=== PATIENT | male | born 1960 | race Caucasian/White ===

== ENCOUNTER 2016-07-08 16:21 | Emergency (ER) | payer OTHER ==
[2016-07-08] MEDS ORDERED: Albuterol Sulfate 2.5 mg/0.5 ml Neb ONE ×2 (16:55→17:53)
[2016-07-08] MEDS ORDERED: Ipratropium Bromide 2.5 ml Neb ONE (16:56)
[2016-07-08] MEDS ORDERED: methylPREDNISolone Sod Succ/PF 125 MG/2 ML VIAL ONE (16:56)
[2016-07-08 17:12] LABS: #Basophils 0.1 thou/uL (0.0-0.2); #Eosinphils 0.1 thou/uL (0.0-0.7); #Lymphocytes 2.7 thou/uL (1.20-3.40); #Monocytes 0.7 thou/uL (0.11-0.59); #Neutrophils 6.8 thou/uL (1.40-6.50); %Basophils 0.8 % (0.0-1.0); %Eosinophils 0.7 % (0.0-10.0); %Lymphocytes 26.4 % (21.0-51.0); %Monocytes 6.5 % (0.0-10.0); Hematocrit 41.4 % (42.0-52.0); Red Blood Cell (RBC) Count 4.51 mill/uL (4.70-6.10); White Blood Cell (WBC) Count 10.4 thou/uL (4.8-10.8)
--- NOTE | 2016-07-08 17:18 | RAD ---
PA AND LATERAL VIEWS OF CHEST: Date: 07/08/16 HISTORY: Dyspnea. FINDINGS: Comparison made with exam of 12/26/14. There are changes of median sternotomy. The heart size is normal. The lungs are well expanded withou t focal areas of consolidation, pneumothorax, or pleural effusions. No acute osseous abnormalities a re seen. IMPRESSION: No radiographic evidence of acute cardiopulmonary process. POS: [facility]
[2016-07-08 17:30] LABS: ALT (SGPT) 43 U/L (0-55); AST (SGOT) 22 U/L (5-34); Alkaline Phosphatase 74 U/L (40-150); Anion Gap 17 mmol/L (10-20); BUN (Urea Nitrogen) 10 mg/dL (8.4-25.7); Bilirubin, Total 0.3 mg/dL (0.2-1.2); Calc. Creatinine Clearance 0 mL/min (70-130); Carbon Dioxide 23 mmol/L (22-29); Chloride 102 mmol/L (98-107); Estimated GFR-MDRD Greater than 90; Globulin 3.3 g/dL (2.4-3.5); Protein, Total 7.3 g/dL (6.0-8.3)
[2016-07-08] MEDS ORDERED: Sodium Chloride For Inhalation 0.9% 3 ML NEB ONE (17:53)
== END 2016-07-08 18:20 | disposition home or self-care (01) ==
LOC: NAV ERS 16:21
DX: J45.909 Unspecified asthma, uncomplicated (principal); I48.91 Unspecified atrial fibrillation; E11.9 Type 2 diabetes mellitus without complications; E78.5 Hyperlipidemia, unspecified; I11.0 Hypertensive heart disease with heart failure; I50.9 Heart failure, unspecified; F41.9 Anxiety disorder, unspecified; F32.9 Major depressive disorder, single episode, unspecified
CPT/HCPCS: 71020; 80053; 82553; 84484; 85025; 93005; 94640; 96374; J2930; J7611; J7644

== ENCOUNTER 2016-11-03 06:59 | Outpatient (CLI) | payer OTHER ==
[2016-11-03 08:21] LABS: ALT (SGPT) 38 U/L (8-55); AST (SGOT) 20 U/L (5-34); Albumin 4.8 g/dL (3.5-5.0); Alkaline Phosphatase 68 U/L (40-150); Anion Gap 19 mmol/L (10-20); BUN (Urea Nitrogen) 16 mg/dL (8.4-25.7); Bilirubin, Direct 0.1 mg/dL (0.1-0.3); Bilirubin, Total 0.4 mg/dL (0.2-1.2); Calc. Creatinine Clearance 0 mL/min (70-130); Calcium 9.9 mg/dL (7.8-10.44); Carbon Dioxide 24 mmol/L (22-29); Chloride 96 mmol/L (98-107); Cholesterol 180 mg/dl (< 200 Desired); Estimated GFR-MDRD Greater than 90; Glucose 168 mg/dL (70-105); HDL Cholesterol 30 mg/dL (>60 Neg Risk); LDL Cholesterol, Calculated 114 mg/dL; Potassium 3.2 mmol/L (3.5-5.1); Sodium 136 mmol/L (136-145); Triglycerides 178 mg/dL (Less than 150)
[2016-11-03 08:35] LABS: #Basophils 0.1 thou/uL (0.0-0.2); #Eosinphils 0.1 thou/uL (0.0-0.7); #Lymphocytes 2.7 thou/uL (1.20-3.40); #Neutrophils 6.1 thou/uL (1.40-6.50); %Basophils 0.6 % (0.0-1.0); %Eosinophils 0.6 % (0.0-10.0); %Lymphocytes 27.6 % (21.0-51.0); %Monocytes 10.3 % (0.0-10.0); %Neutrophils 60.9 % (42.0-75.0); Hemoglobin 15.4 g/dL (14.0-18.0); Mean Corpuscular HGB CONC 32.9 g/dL (32.0-36.0); Mean Corpuscular Hemoglobin 29.5 pg (27.0-31.0); Mean Corpuscular Volume 89.5 fl (80.0-94.0); Mean Platelet Volume 6.6 fL (7.4-10.4); Platelet Count 290 thou/uL (130-400); Red Blood Cell (RBC) Count 5.23 mill/uL (4.70-6.10); White Blood Cell (WBC) Count 9.9 thou/uL (4.8-10.8)
[2016-11-03 08:45] LABS: Digoxin 0.62 ng/mL (0.8-2.0); Hemoglobin A1c 6.2 % (4.0-6.0)
== END 2016-11-03 07:00 | disposition home or self-care (01) ==
LOC: NAV LAB 06:59
PROVIDERS: ATTEND Family Medicine
DX: E78.00 Pure hypercholesterolemia, unspecified (principal); I10 Essential (primary) hypertension; E11.9 Type 2 diabetes mellitus without complications; I48.91 Unspecified atrial fibrillation; Z79.899 Other long term (current) drug therapy
CPT/HCPCS: 36415; 80048; 80061; 80076; 80162; 83036; 83880; 84443; 85025

== ENCOUNTER 2017-01-31 07:27 | Outpatient (CLI) | payer OTHER ==
[2017-01-31 08:21] LABS: Anion Gap 19 mmol/L (10-20); BUN (Urea Nitrogen) 14 mg/dL (8.4-25.7); Calc. Creatinine Clearance 0 mL/min (70-130); Calcium 9.2 mg/dL (7.8-10.44); Carbon Dioxide 20 mmol/L (22-29); Chloride 105 mmol/L (98-107); Estimated GFR-MDRD Greater than 90; Glucose 139 mg/dL (70-105); Magnesium 2.3 mg/dL (1.6-2.6); Potassium 4.5 mmol/L (3.5-5.1); Sodium 139 mmol/L (136-145)
== END 2017-01-31 07:28 | disposition home or self-care (01) ==
LOC: NAV LAB 07:27
PROVIDERS: ATTEND Internal Medicine Cardiovascular Disease
DX: I10 Essential (primary) hypertension (principal)
CPT/HCPCS: 36415; 80048; 83735

== ENCOUNTER 2017-02-05 14:48 | Emergency (ER) | payer OTHER ==
[2017-02-05] MEDS ORDERED: Ondansetron ODT 4 MG TAB ONE (15:19)
== END 2017-02-05 16:13 | disposition home or self-care (01) ==
LOC: NAV ERS 14:48
DX: R11.2 Nausea with vomiting, unspecified (principal); I49.9 Cardiac arrhythmia, unspecified; I48.91 Unspecified atrial fibrillation; E11.9 Type 2 diabetes mellitus without complications; E78.5 Hyperlipidemia, unspecified; E66.9 Obesity, unspecified; I25.10 Atherosclerotic heart disease of native coronary artery without angina pectoris; I11.0 Hypertensive heart disease with heart failure; I50.9 Heart failure, unspecified; G43.909 Migraine, unspecified, not intractable, without status migrainosus; F41.9 Anxiety disorder, unspecified; F32.9 Major depressive disorder, single episode, unspecified; Z79.4 Long term (current) use of insulin; Z79.82 Long term (current) use of aspirin; Z79.01 Long term (current) use of anticoagulants; Z79.899 Other long term (current) drug therapy
CPT/HCPCS: 99283; Q0162

== ENCOUNTER 2017-06-06 11:45 | Emergency (ER) | payer OTHER ==
[2017-06-06] MEDS ORDERED: Sodium Chloride 0.9% 1,000 ML ONE (12:39)
[2017-06-06] MEDS ORDERED: Ondansetron HCl/PF 4 MG/2 ML Vial ONE (12:40)
[2017-06-06 13:21] LABS: #Basophils 0.1 thou/uL (0.0-0.2); Hemoglobin 14.6 g/dL (14.0-18.0); Mean Corpuscular Hemoglobin 28.8 pg (27.0-31.0)
[2017-06-06 13:33] LABS: ALT (SGPT) 38 U/L (8-55); AST (SGOT) 27 U/L (5-34); Albumin 4.4 g/dL (3.5-5.0); Alkaline Phosphatase 74 U/L (40-150); Anion Gap 19 mmol/L (10-20); BUN (Urea Nitrogen) 12 mg/dL (8.4-25.7); Bilirubin, Total 0.2 mg/dL (0.2-1.2); Calc. Creatinine Clearance 0 mL/min (70-130); Calcium 8.5 mg/dL (7.8-10.44); Carbon Dioxide 25 mmol/L (22-29); Chloride 99 mmol/L (98-107); Estimated GFR-MDRD Greater than 90; Glucose 159 mg/dL (70-105); Lipase 21 U/L (8-78); Potassium 3.7 mmol/L (3.5-5.1); Protein, Total 7.4 g/dL (6.0-8.3); Sodium 139 mmol/L (136-145)
[2017-06-06 13:47] LABS: #Lymphocytes 1.9 thou/uL (1.20-3.40); #Monocytes 0.7 thou/uL (0.11-0.59); #Neutrophils 5.5 thou/uL (1.40-6.50); %Basophils 0.9 % (0.0-1.0); %Eosinophils 0.5 % (0.0-10.0); %Lymphocytes 23.6 % (21.0-51.0); %Monocytes 8.4 % (0.0-10.0); %Neutrophils 66.6 % (42.0-75.0); Mean Corpuscular HGB CONC 32.3 g/dL (32.0-36.0); Mean Corpuscular Volume 89.3 fl (80.0-94.0); Mean Platelet Volume 7.2 fL (7.4-10.4); Platelet Count 276 thou/uL (130-400); RBC Distribution Width 11.7 % (11.5-14.5); Red Blood Cell (RBC) Count 5.06 mill/uL (4.70-6.10); White Blood Cell (WBC) Count 8.2 thou/uL (4.8-10.8)
== END 2017-06-06 14:52 | disposition home or self-care (01) ==
LOC: NAV ERS 11:45
DX: E86.0 Dehydration (principal); R11.2 Nausea with vomiting, unspecified; R19.7 Diarrhea, unspecified; E11.9 Type 2 diabetes mellitus without complications; E66.9 Obesity, unspecified; E78.5 Hyperlipidemia, unspecified; F41.9 Anxiety disorder, unspecified; F32.9 Major depressive disorder, single episode, unspecified; G43.909 Migraine, unspecified, not intractable, without status migrainosus; G40.209 Localization-related (focal) (partial) symptomatic epilepsy and epileptic syndromes with complex partial seizures, not intractable, without status epilepticus; I11.0 Hypertensive heart disease with heart failure; I50.9 Heart failure, unspecified; I48.91 Unspecified atrial fibrillation; I25.10 Atherosclerotic heart disease of native coronary artery without angina pectoris; J42 Unspecified chronic bronchitis; Z79.4 Long term (current) use of insulin; Z79.82 Long term (current) use of aspirin; Z79.899 Other long term (current) drug therapy
CPT/HCPCS: 80053; 83690; 85025; 93005; 96361; 96374; J2405; J7050

== ENCOUNTER 2017-12-17 14:25 | Emergency (ER) | payer OTHER ==
[2017-12-17] MEDS ORDERED: AMOXicillin 250 MG CAP ONE (15:02)
== END 2017-12-17 15:08 | disposition home or self-care (01) ==
LOC: NAV ERS 14:25
DX: J06.9 Acute upper respiratory infection, unspecified (principal); E78.5 Hyperlipidemia, unspecified; E66.9 Obesity, unspecified; I11.0 Hypertensive heart disease with heart failure; I50.9 Heart failure, unspecified; I25.10 Atherosclerotic heart disease of native coronary artery without angina pectoris; J40 Bronchitis, not specified as acute or chronic; F41.9 Anxiety disorder, unspecified; F32.9 Major depressive disorder, single episode, unspecified; Z79.899 Other long term (current) drug therapy; Z79.84 Long term (current) use of oral hypoglycemic drugs; Z79.01 Long term (current) use of anticoagulants
CPT/HCPCS: 99283

== ENCOUNTER 2018-07-24 16:20 | Emergency (ER) | payer OTHER ==
[2018-07-24 16:52] LABS: #Basophils 0.1 thou/uL (0.0-0.2); #Eosinphils 0.1 thou/uL (0.0-0.7); #Lymphocytes 2.6 thou/uL (1.20-3.40); #Monocytes 0.8 thou/uL (0.11-0.59); #Neutrophils 4.9 thou/uL (1.40-6.50); Mean Corpuscular HGB CONC 32.2 g/dL (32.0-36.0); Mean Corpuscular Hemoglobin 29.3 pg (27.0-31.0); Mean Platelet Volume 6.4 fL (7.4-10.4); Platelet Count 266 thou/uL (130-400); RBC Distribution Width 12.3 % (11.5-14.5); Red Blood Cell (RBC) Count 4.78 mill/uL (4.70-6.10); White Blood Cell (WBC) Count 8.4 thou/uL (4.8-10.8)
[2018-07-24 17:08] LABS: ALT (SGPT) 46 U/L (8-55); AST (SGOT) 28 U/L (5-34); Albumin 4.6 g/dL (3.5-5.0); Alkaline Phosphatase 72 U/L (40-150); Anion Gap 17 mmol/L (10-20); BUN (Urea Nitrogen) 28 mg/dL (8.4-25.7); Bilirubin, Total 0.5 mg/dL (0.2-1.2); Calc. Creatinine Clearance 0 mL/min (70-130); Calcium 9.7 mg/dL (7.8-10.44); Carbon Dioxide 22 mmol/L (22-29); Chloride 101 mmol/L (98-107); Estimated GFR-MDRD 88; Globulin 2.8 g/dL (2.4-3.5); Glucose 91 mg/dL (70-105); Magnesium 2.2 mg/dL (1.6-2.6); Potassium 3.9 mmol/L (3.5-5.1); Protein, Total 7.4 g/dL (6.0-8.3); Sodium 136 mmol/L (136-145)
--- NOTE | 2018-07-24 17:37 | RAD ---
CHEST ONE VIEW: History: Chest palpitations. Comparison: 03-01-18 FINDINGS: Heart size is enlarged. Lungs are hypoinflated. Mild atelectasis. No pneumothorax. No large effusion. IMPRESSION: Lung hypoinflation and cardiomegaly. POS: [facility]
== END 2018-07-24 18:27 | disposition home or self-care (01) ==
LOC: NAV ERS 16:20
DX: R42 Dizziness and giddiness (principal); I48.91 Unspecified atrial fibrillation; E78.5 Hyperlipidemia, unspecified; I25.10 Atherosclerotic heart disease of native coronary artery without angina pectoris; I11.0 Hypertensive heart disease with heart failure; I50.9 Heart failure, unspecified; G43.909 Migraine, unspecified, not intractable, without status migrainosus; F41.9 Anxiety disorder, unspecified; F32.9 Major depressive disorder, single episode, unspecified; Z79.01 Long term (current) use of anticoagulants; Z79.899 Other long term (current) drug therapy; Z79.82 Long term (current) use of aspirin; Z79.84 Long term (current) use of oral hypoglycemic drugs
CPT/HCPCS: 71045; 80053; 83735; 84484; 85025; 93005

== ENCOUNTER 2018-08-04 19:08 | Emergency (ER) | payer OTHER ==
[2018-08-04] MEDS ORDERED: Aspirin Chewable 81 MG TAB ONE (19:16)
[2018-08-04 19:48] LABS: #Basophils 0.1 thou/uL (0.0-0.2); #Eosinphils 0.1 thou/uL (0.0-0.7); #Lymphocytes 2.7 thou/uL (1.20-3.40); #Monocytes 0.8 thou/uL (0.11-0.59); #Neutrophils 4.3 thou/uL (1.40-6.50); %Basophils 1.3 % (0.0-1.0); %Eosinophils 1.3 % (0.0-10.0); %Lymphocytes 33.7 % (21.0-51.0); %Monocytes 9.8 % (0.0-10.0); Hemoglobin 13.3 g/dL (14.0-18.0); Mean Corpuscular HGB CONC 32.8 g/dL (32.0-36.0); Mean Corpuscular Hemoglobin 29.5 pg (27.0-31.0); Mean Corpuscular Volume 89.9 fL (78.0-98.0); Mean Platelet Volume 5.9 fL (7.4-10.4); Platelet Count 251 thou/uL (130-400); RBC Distribution Width 12.3 % (11.5-14.5); Red Blood Cell (RBC) Count 4.52 mill/uL (4.70-6.10); White Blood Cell (WBC) Count 7.9 thou/uL (4.8-10.8)
--- NOTE | 2018-08-04 20:02 | RAD ---
PORTABLE CHEST: 08/04/18 HISTORY: Chest pain. COMPARISON: 07/24/18 study. Heart size is within normal limits considering lordotic technique. There are postop sternotomy change s. The lungs are clear of infiltrates. IMPRESSION: No active intrathoracic disease. POS: [facility]
[2018-08-04 20:03] LABS: ALT (SGPT) 29 U/L (8-55); AST (SGOT) 22 U/L (5-34); Albumin 4.5 g/dL (3.5-5.0); Alkaline Phosphatase 79 U/L (40-150); Anion Gap 14 mmol/L (10-20); BUN (Urea Nitrogen) 18 mg/dL (8.4-25.7); Bilirubin, Total 0.2 mg/dL (0.2-1.2); CK (CPK) 189 U/L (30-200); Calc. Creatinine Clearance 0 mL/min (70-130); Calcium 10.3 mg/dL (7.8-10.44); Carbon Dioxide 26 mmol/L (22-29); Chloride 102 mmol/L (98-107); Estimated GFR-MDRD Greater than 90; Globulin 2.7 g/dL (2.4-3.5); Glucose 85 mg/dL (70-105); Lipase 21 U/L (8-78); Potassium 3.8 mmol/L (3.5-5.1); Protein, Total 7.2 g/dL (6.0-8.3); Sodium 138 mmol/L (136-145)
== END 2018-08-04 20:45 | disposition home or self-care (01) ==
LOC: NAV ERS 19:08
DX: R07.89 Other chest pain (principal); I20.9 Angina pectoris, unspecified; I48.91 Unspecified atrial fibrillation; E78.5 Hyperlipidemia, unspecified; I50.9 Heart failure, unspecified; G43.909 Migraine, unspecified, not intractable, without status migrainosus; J42 Unspecified chronic bronchitis; F41.9 Anxiety disorder, unspecified; F32.9 Major depressive disorder, single episode, unspecified; Z79.899 Other long term (current) drug therapy; Z79.4 Long term (current) use of insulin
CPT/HCPCS: 71045; 80053; 82550; 83690; 84484; 85025; 93005

== ENCOUNTER 2018-11-13 10:45 | Emergency (ER) | payer OTHER ==
[2018-11-13 11:32] LABS: #Basophils 0.1 thou/uL (0.0-0.2); #Eosinphils 0.1 thou/uL (0.0-0.7); #Lymphocytes 2.1 thou/uL (1.20-3.40); #Monocytes 0.6 thou/uL (0.11-0.59); %Eosinophils 1.1 % (0.0-10.0); %Lymphocytes 30.5 % (21.0-51.0); %Monocytes 8.8 % (0.0-10.0); %Neutrophils 58.5 % (42.0-75.0); Hemoglobin 14.3 g/dL (14.0-18.0); Mean Corpuscular HGB CONC 32.5 g/dL (32.0-36.0); Mean Corpuscular Hemoglobin 29.5 pg (27.0-31.0); Mean Corpuscular Volume 90.8 fL (78.0-98.0); Platelet Count 257 thou/uL (130-400); RBC Distribution Width 12.1 % (11.5-14.5); Red Blood Cell (RBC) Count 4.84 mill/uL (4.70-6.10); White Blood Cell (WBC) Count 6.8 thou/uL (4.8-10.8)
[2018-11-13 11:47] LABS: ALT (SGPT) 33 U/L (8-55); AST (SGOT) 22 U/L (5-34); Albumin 4.7 g/dL (3.5-5.0); Alkaline Phosphatase 58 U/L (40-150); Anion Gap 20 mmol/L (10-20); BUN (Urea Nitrogen) 12 mg/dL (8.4-25.7); Bilirubin, Total 0.3 mg/dL (0.2-1.2); CK (CPK) 137 U/L (30-200); Calc. Creatinine Clearance 0 mL/min (70-130); Calcium 9.7 mg/dL (7.8-10.44); Carbon Dioxide 22 mmol/L (22-29); Chloride 100 mmol/L (98-107); Estimated GFR-MDRD Greater than 90; Globulin 2.8 g/dL (2.4-3.5); Glucose 130 mg/dL (70-105); Protein, Total 7.5 g/dL (6.0-8.3); Sodium 138 mmol/L (136-145)
--- NOTE | 2018-11-13 12:10 | RAD ---
PORTABLE CHEST: Date: 11/13/18 PROVIDED CLINICAL HISTORY: Cough. FINDINGS: Comparison with 08/08/18. Examination is performed in apical lordotic positioning. Given this limitation, no definite change in the appearance of the cardiac or mediastinal silhouette with respect to the prior exam. Median chadwick otomy changes are again seen. No focal consolidation, pleural fluid, or pneumothorax apparent. IMPRESSION: No evidence for an acute cardiopulmonary process. POS: [facility]
== END 2018-11-13 12:50 | disposition home or self-care (01) ==
LOC: NAV ERS 10:45
DX: R42 Dizziness and giddiness (principal); I49.9 Cardiac arrhythmia, unspecified; I11.0 Hypertensive heart disease with heart failure; I50.9 Heart failure, unspecified; I48.91 Unspecified atrial fibrillation; E11.9 Type 2 diabetes mellitus without complications; E78.5 Hyperlipidemia, unspecified; I25.10 Atherosclerotic heart disease of native coronary artery without angina pectoris; F41.9 Anxiety disorder, unspecified; F32.9 Major depressive disorder, single episode, unspecified; Z79.899 Other long term (current) drug therapy; Z79.01 Long term (current) use of anticoagulants
CPT/HCPCS: 71045; 80053; 82550; 83880; 84484; 85025; 93005

== ENCOUNTER 2018-11-15 12:50 | Observation (INO) | payer OTHER ==
[2018-11-15 13:37] LABS: #Basophils 0.1 thou/uL (0.0-0.2); #Eosinphils 0.1 thou/uL (0.0-0.7); #Lymphocytes 3.2 thou/uL (1.20-3.40); #Monocytes 0.6 thou/uL (0.11-0.59); #Neutrophils 5.7 thou/uL (1.40-6.50); %Basophils 0.8 % (0.0-1.0); %Eosinophils 0.7 % (0.0-10.0); %Lymphocytes 32.9 % (21.0-51.0); %Monocytes 5.8 % (0.0-10.0); %Neutrophils 59.8 % (42.0-75.0); Hemoglobin 14.7 g/dL (14.0-18.0); Mean Corpuscular HGB CONC 33.6 g/dL (32.0-36.0); Mean Corpuscular Hemoglobin 29.8 pg (27.0-31.0); Mean Corpuscular Volume 88.8 fL (78.0-98.0); Mean Platelet Volume 5.8 fL (7.4-10.4); Platelet Count 278 thou/uL (130-400); RBC Distribution Width 11.9 % (11.5-14.5); Red Blood Cell (RBC) Count 4.92 mill/uL (4.70-6.10); White Blood Cell (WBC) Count 9.6 thou/uL (4.8-10.8)
[2018-11-15 13:55] LABS: ALT (SGPT) 41 U/L (8-55); AST (SGOT) 25 U/L (5-34); Albumin 4.8 g/dL (3.5-5.0); Alkaline Phosphatase 71 U/L (40-150); Anion Gap 21 mmol/L (10-20); BUN (Urea Nitrogen) 17 mg/dL (8.4-25.7); Bilirubin, Total 0.3 mg/dL (0.2-1.2); Calc. Creatinine Clearance 0 mL/min (70-130); Calcium 10.3 mg/dL (7.8-10.44); Carbon Dioxide 20 mmol/L (22-29); Chloride 98 mmol/L (98-107); Estimated GFR-MDRD 79; Globulin 3.1 g/dL (2.4-3.5); Glucose 98 mg/dL (70-105); Potassium 4.2 mmol/L (3.5-5.1); Protein, Total 7.9 g/dL (6.0-8.3); Sodium 135 mmol/L (136-145)
[2018-11-15] MEDS ORDERED: Sodium Chloride 0.9% 1,000 ML ONE (14:12)
--- NOTE | 2018-11-15 14:32 | RAD ---
SINGLE VIEW OF THE CHEST: 11/15/18 COMPARISON: 11/13/18 HISTORY: Hypertension and dizziness. FINDINGS: Single view of the chest shows a normal sized cardiomediastinal silhouette. The patient is status pos t sternotomy. There is no evidence of consolidation, mass, or pleural effusion. IMPRESSION: No evidence of acute cardiopulmonary disease. POS: [facility]
--- NOTE | 2018-11-15 14:34 | CT ---
CT OF THE BRAIN WITHOUT CONTRAST: 11/15/18 COMPARISON: 09/23/15 HISTORY: Hypertension and dizziness. TECHNIQUE: Multiple contiguous axial images obtained in a CT of the brain without contrast. FINDINGS: There are scattered hypodensities in the subcortical and periventricular white matter, likely seconda ry to small vessel ischemic disease. No large confluent infarction is seen. There is no evidence of h ydrocephalus, intracranial hemorrhage, or extra-axial fluid collection. The calvarium and overlying soft tissues are unremarkable. Fluid is seen in the right sphenoid sinus . The other paranasal sinuses and mastoid air cells are well aerated. IMPRESSION: No evidence of acute intracranial abnormality. POS: [facility]
[2018-11-15 16:20] VITALS: BMI 40.1
[2018-11-15] MEDS ORDERED: Ventolin HFA Inhaler 60 PUFF INHALER INH PRN (18:55)
[2018-11-15] MEDS ORDERED: Cyclobenzaprine 10 MG TAB PO PRN (18:55)
[2018-11-15] MEDS ORDERED: Nitroglycerin 0.4 MG TAB (25 Tab Bottle) SL PRN (18:55)
[2018-11-15] MEDS ORDERED: Non-Formulary Item 1 EACH (Budesonide-Formoterol [Symbicort 160-4.5] 2 PUFF) INH PRN (18:55)
[2018-11-15] MEDS ORDERED: Acetaminophen 325 MG TAB PO PRN (19:00)
[2018-11-15] MEDS ORDERED: Calcium Carbonate 500 MG ChewTAB PO PRN (19:00)
[2018-11-15] MEDS ORDERED: EVOLOCUMAB 140 MG SQ SCH (19:00)
[2018-11-15] MEDS ORDERED: Loperamide HCl 2 MG CAP PO PRN ×2 (19:00)
[2018-11-15] MEDS ORDERED: Senokot S 8.6-50 MG TAB PO PRN (19:00)
[2018-11-15] MEDS ORDERED: Mometasone/Formoterol 60 PUFF AER INH PRN (19:51)
[2018-11-15] MEDS: Potassium Chloride 10 MEQ TAB PO SCH (20:35)
[2018-11-15] MEDS: Amoxicillin/Potassium Clav 875 MG TAB PO SCH (20:35)
[2018-11-15 21:00] LABS: Bilirubin Negative (Negative); Blood, Urine Negative (Negative); Clarity Clear (Clear); Glucose, Urine (Dipstick) Negative (Negative); Leukocyte Negative (Negative); Nitrite Negative (Negative); Protein, Urine (Dipstick) Negative (Neg-Trace); Urobilinogen 0.2 mg/dL (Less than 2)
[2018-11-15] MEDS ORDERED: Atorvastatin Calcium 40 MG TAB PO SCH (21:00)
[2018-11-15 21:12] LABS: Squamous Epithelial 0-3 HPF (0-3)
--- NOTE | 2018-11-16 02:39 | HP ---
HISTORY OF PRESENT ILLNESS: Mr. Augustin is a very pleasant 58-year-old white male, who presented to the [facility] complaining of sweating, shortness of breath, feeling dizzy, feeling like his blood pressure was high. It looked like he was having a heart attack, so the friend just sent him to [facility] Emergency Room. He was seen there by Dr. Nice. He was evaluated and found to have a high lactic acid. Rest of his exam was basically somewhat normal and the patient after he stayed there for approximately an hour or 2, blood pressure did come down, but he did tilt a little bit. Dr. Nice was concerned because of his significant cardiac history that he may be having a cardiac event, so he requested placing him on observation and doing serial troponins, cardiac enzymes, and following his lactic acid. PAST MEDICAL HISTORY: Significant for 1. Hypertension. 2. Coronary artery disease. 3. Irregular heartbeat. 4. Hyperlipidemia. 5. Anxiety, depressive disorder. 6. GERD. 7. Diabetes type 2. 8. Atrial fib in the past. 9. Anxiety. 10. Allergic rhinitis. 11. Seizure disorder. PAST SURGICAL HISTORY: Reveals the patient has a cardiac bypass, cardiac stents, cardiac ablation. FAMILY HISTORY: Reveals the patient's father of heart disease and high blood pressure. The patient's mother of heart disease and high blood pressure. SOCIAL HISTORY: Reveals patient does not smoke, does not drink, tobacco or use drugs. He is . He has several children, is unable to exercise. ALLERGIES: REVEALS HE IS ALLERGIC TO YUNIOR INHIBITORS, WHICH GIVE HIM A COUGH. PRESENT MEDICATIONS: Reveals he is on the followin. Xarelto 20 mg once a day. 2. Plavix 75 mg daily. 3. Bystolic 5 mg once a day. 4. Losartan 25 mg a day. 5. Diltiazem p.r.n. heart rate greater than 120. 6. Torsemide 20 mg daily. 7. Spironolactone 25 mg half a pill once daily. 8. Potassium chloride 10 mEq b.i.d. 9. Atorvastatin 80 mg daily. 10. Zetia 10 mg daily. 11. CoQ10 daily. 12. Digoxin 1.25 daily. 13. Isosorbide dinitrate 30 mg two pills daily. 14. Lantus 10 units subcu once daily. 15. Metformin 500 mg two pills b.i.d. with breakfast and supper. 16. Divalproex 500 mg 3 times a day. 17. Omeprazole 20 mg daily. 18. Mag-Ox 400 mg daily. 19. Nitroglycerin p.r.n. 20. Sertraline 100 mg two pills daily. 21. Bupropion XL 150 mg one pill daily. 22. Gabapentin 300 mg once at bedtime. 23. Xopenex p.r.n. 24. Repatha injections twice a month. REVIEW OF SYSTEMS: CONSTITUTIONAL: Reveals the patient has not had any weight loss or weight gain. His appetite has been good. He has not had fever, chills, or night sweats. He sweats atypically and today he has had a large sweat. EYES: The patient denies vision changes. EARS: Denies changes in his hearing. HEART: The patient denies chest pain, but does have palpitations, irregular heartbeat, some shortness of breath. RESPIRATORY: The patient does admit to some shortness of breath and dyspnea on exertion, which is constant for him. No significant cough, although he did have a cough but it is much improved since he had been on the Augmentin. GI: The patient denies constipation, diarrhea, nausea, vomiting. NEUROLOGIC: The patient denies headaches, lightheadedness, paresthesias, numbness, weakness, or vision changes. MUSCULOSKELETAL: The patient denies myalgias, increased weakness, focal weakness. PSYCHIATRY: The patient denies anxiety, depressive and no mood swings. PHYSICAL EXAMINATION: GENERAL: This is a well-developed, well-nourished, alert white male, who states he is beginning to feel much better. HEENT: Normocephalic, nontraumatic cranium. Pupils are equal, round, and reactive. Extraocular movements are intact. Nose and throat are slightly dry, but clear. NECK: Supple without masses, nodes, or bruits. No jugular venous distention noted. HEART: Reveals a regular rate and rhythm without murmurs, gallops or rubs. ABDOMEN: Soft, nontender without organomegaly. Normal bowel sounds are noted. No rebound or guarding is noted. GENITOURINARY: Deferred. EXTREMITIES: Reveal no clubbing, cyanosis, and no edema is noted today. The patient does not describe any recent seizures. PSYCHOLOGIC: The patient is alert and oriented x3. ASSESSMENT: 1. Unknown etiology of dizziness and hypertension, although the patient was slightly dehydrated and did tilt in the ER. 2. Lactic acidosis increased. 3. A very strong history of cardiovascular disease in the past with CABG stents and ablations in the past. 4. Seizure disorder. 5. History of atrial fibrillation. 6. Diabetes. 7. Hypertension. 8. Hypercholesterolemia. 9. Gastroesophageal reflux disease. PLAN: 1. The patient is admitted to observation. 2. The patient will have serial cardiac enzymes, which has already been ordered by Dr. Nice. 3. Repeat lactic acid in the morning. 4. Continue to follow the patient closely over the evening. 5. If the patient does well, he may be able to go home tomorrow. Job ID: [id number]
[2018-11-16 06:01] LABS: #Basophils 0.1 thou/uL (0.0-0.2); #Eosinphils 0.1 thou/uL (0.0-0.7); #Lymphocytes 2.4 thou/uL (1.20-3.40); #Monocytes 0.9 thou/uL (0.11-0.59); #Neutrophils 4.4 thou/uL (1.40-6.50); %Basophils 1.1 % (0.0-1.0); %Eosinophils 1.3 % (0.0-10.0); %Lymphocytes 30.8 % (21.0-51.0); %Monocytes 11.4 % (0.0-10.0); %Neutrophils 55.5 % (42.0-75.0); Hemoglobin 13.5 g/dL (14.0-18.0); Mean Corpuscular HGB CONC 32.7 g/dL (32.0-36.0); Mean Corpuscular Hemoglobin 29.6 pg (27.0-31.0); Mean Corpuscular Volume 90.5 fL (78.0-98.0); Mean Platelet Volume 6.4 fL (7.4-10.4); Platelet Count 234 thou/uL (130-400); RBC Distribution Width 12.2 % (11.5-14.5); Red Blood Cell (RBC) Count 4.57 mill/uL (4.70-6.10); White Blood Cell (WBC) Count 7.9 thou/uL (4.8-10.8)
[2018-11-16 06:11] LABS: ALT (SGPT) 34 U/L (8-55); AST (SGOT) 19 U/L (5-34); Albumin 4.3 g/dL (3.5-5.0); Alkaline Phosphatase 59 U/L (40-150); Anion Gap 16 mmol/L (10-20); BUN (Urea Nitrogen) 15 mg/dL (8.4-25.7); Bilirubin, Total 0.4 mg/dL (0.2-1.2); Calc. Creatinine Clearance 151 mL/min (70-130); Calcium 9.5 mg/dL (7.8-10.44); Carbon Dioxide 25 mmol/L (22-29); Chloride 100 mmol/L (98-107); Estimated GFR-MDRD Greater than 90; Globulin 2.8 g/dL (2.4-3.5); Glucose 113 mg/dL (70-105); Potassium 3.9 mmol/L (3.5-5.1); Protein, Total 7.1 g/dL (6.0-8.3); Sodium 137 mmol/L (136-145)
[2018-11-16 07:56] VITALS: TEMP 96.9
[2018-11-16] MEDS ORDERED: metFORMIN 500 MG TAB PO SCH (08:00)
[2018-11-16] MEDS ORDERED: Sodium Chloride 0.9% 10 ML ONE (08:09)
[2018-11-16] MEDS: Amoxicillin/Potassium Clav 875 MG TAB PO SCH (08:57)
[2018-11-16] MEDS: Potassium Chloride 10 MEQ TAB PO SCH (08:59)
[2018-11-16] MEDS ORDERED: Bupropion 150 MG XL TAB PO SCH (09:00)
[2018-11-16] MEDS ORDERED: Losartan 25 MG TAB PO SCH (09:00)
[2018-11-16] MEDS ORDERED: Vitamin E 400 UNITS CAP PO SCH (09:00)
[2018-11-16] MEDS ORDERED: Torsemide 20 MG TAB PO SCH (09:00)
[2018-11-16] MEDS ORDERED: Non-Formulary Item 1 EACH (Omeprazole [Omeprazole] 40 MG) PO SCH (09:00)
[2018-11-16] MEDS ORDERED: Spironolactone 25 MG TAB PO SCH (09:00)
[2018-11-16] MEDS ORDERED: Ubidecarenone 50 MG CAP PO SCH (09:00)
[2018-11-16] MEDS ORDERED: Lantus 1000 UNITS/10 ML VIAL SC SCH (09:00)
[2018-11-16] MEDS ORDERED: Nebivolol HCl 2.5 MG TAB PO SCH (09:00)
[2018-11-16] MEDS ORDERED: Magnesium Oxide 400 MG TAB PO SCH (09:00)
[2018-11-16] MEDS ORDERED: Ezetimibe 10 MG TAB PO SCH (09:00)
[2018-11-16] MEDS ORDERED: Clopidogrel Bisulfate 75 MG TAB PO SCH (09:00)
[2018-11-16 09:24] VITALS: BP 152/77
--- NOTE | 2018-11-16 11:22 | DIS ---
DATE OF ADMISSION: 11/15/2018 DATE OF DISCHARGE: 11/16/2018 HISTORY OF PRESENT ILLNESS: Mr. Augustin is a very pleasant 58-year-old white male, who came to the emergency room with sweating, shortness of breath, feeling dizzy , feeling like his blood pressure was high. He had significant heart attacks and so he was brought to the emergency room. He was seen by Dr. Wang, who evaluated him and did not find anything except a high lactic acid. He felt that something may be impending, so we did admit him to the hospital for observation. We did get troponins, which all remained normal. We also followed his lactic acid, which went from 3.3 down to 3.0, and this morning, it is 1.1. His creatinine was 0.98 with a GFR of 79 and now creatinine is 0.81 with a GFR of greater than 90. His white count also has gone from 9.6 down to 7.9. Overall, he states he is feeling better. He has not had any more sweating spells. He is not short of breath. He does not feel like his blood pressure is elevated and he feels much better. His is in the room, and we had a significant discussion over this episode. The patient states he feels better and would like to be discharged to home. Vital signs this morning reveal blood pressure 152/77, pulse 69 to 72, respirations 18 to 20, O2 saturation 96% to 98% on room air, and T-max 96.9. PHYSICAL EXAMINATION: VITAL SIGNS: This is a well-developed, well-nourished, somewhat obese white male, in no apparent distress at this time. HEENT: Reveals normocephalic and nontraumatic cranium. Pupils are equally round and reactive. Extraocular movements are intact. Nose and throat are slightly dry, but clear. NECK: Supple without masses, nodes, or bruits. No jugular venous distention is noted again today. HEART: Reveals a regular rate and rhythm without murmurs, gallops, or rubs. ABDOMEN: Soft, obese, nontender without organomegaly. Normal bowel sounds are noted in all 4 quadrants. No rebound or guarding is noted. : Deferred. EXTREMITIES: Reveal no clubbing, cyanosis, or edema. The patient states he is feeling well and would like to go home. The patient is alert and oriented x3. The patient's is in room and she agrees that he looks and feels much better. ASSESSMENT: 1. Unknown etiology of dizziness and hypertension, although the patient was slightly dehydrated and did tilt in the ER. 2. Lactic acidosis, which was increased, it is now back to normal. 3. Strong family history of cardiovascular disease with coronary artery bypass grafting, stents, and ablation in the past. 4. Seizure disorder. 5. History of atrial fibrillation. 6. Diabetes. 7. Hypertension. 8. Hypercholesterolemia. 9. Gastroesophageal reflux disease. PLAN: The patient is being discharged at this time. He will continue on his present medications. DISCHARGE MEDICATIONS: Include the followin. Xarelto 20 mg daily. 2. Plavix 75 mg daily. 3. Bystolic 5 mg daily. 4. Losartan 25 mg a day. 5. Diltiazem p.r.n. if his heart rate greater than 120. 6. Torsemide 20. 7. Spironolactone 25 mg half a pill once a day. 8. Potassium chloride 10 mEq b.i.d. 9. Atorvastatin 80. 10. Zetia 10 daily. 11. CoQ 10 daily. 12. Digoxin 1.25 daily. 13. Isosorbide dinitrate 30 mg two pills a day. 14. Lantus 10 units subcu daily. 15. Metformin 500 mg two pills b.i.d. with breakfast and supper. 16. Divalproex 500 mg t.i.d. 17. Omeprazole 20 mg a day. 18. Mag-Ox 400 mg daily. 19. Nitroglycerin p.r.n. 20. Sertraline 100 mg two pills daily. 21. Bupropion XL 150 mg one pill daily. 22. Gabapentin 300 mg at bedtime. 23. Xopenex p.r.n. 24. Repatha injections twice a month. The patient is to be discharged from observation. The patient will be seen in my office and follow up in 1 or 2 weeks. If the patient has any questions, he and his will call the office. Continue to follow the patient closely. Dr. Dumont will be apprised of the patient's admission. The patient is ready for discharge. This patient's dictation took more than 35 minutes. Job ID: [id number] [facility]
[2018-11-16] MEDS ORDERED: Rivaroxaban 10 MG TAB PO SCH (17:00)
[2018-11-17] MEDS ORDERED: Digoxin 0.125 MG TAB PO SCH (09:00)
== END 2018-11-16 10:50 | disposition home or self-care (01) ==
LOC: NAV ERS 12:50 → NAV ACUTE 15:03
PROVIDERS: ADMIT Family Medicine; ATTEND Family Medicine
DX: R42 Dizziness and giddiness (principal); R06.02 Shortness of breath; E87.2 Acidosis; E86.0 Dehydration; I10 Essential (primary) hypertension; E11.9 Type 2 diabetes mellitus without complications; E78.00 Pure hypercholesterolemia, unspecified; K21.9 Gastro-esophageal reflux disease without esophagitis; G40.909 Epilepsy, unspecified, not intractable, without status epilepticus; Z79.4 Long term (current) use of insulin; Z79.899 Other long term (current) drug therapy; Z88.8 Allergy status to other drugs, medicaments and biological substances; Z95.2 Presence of prosthetic heart valve; Z95.5 Presence of coronary angioplasty implant and graft
CPT/HCPCS: 36415; 36416; 70450; 71045; 80053; 81001; 83605; 83880; 84484; 85025; 85379; 93005; 96360; G0378; J1815; J7050

== ENCOUNTER 2018-12-11 09:47 | Emergency (ER) | payer OTHER ==
[2018-12-11] MEDS ORDERED: Lidocaine 1% (PF) 30 ML VIAL ONE (10:18)
== END 2018-12-11 10:55 | disposition home or self-care (01) ==
LOC: NAV ERS 09:47
DX: S61.210A Laceration without foreign body of right index finger without damage to nail, initial encounter (principal); I11.0 Hypertensive heart disease with heart failure; I50.9 Heart failure, unspecified; I49.9 Cardiac arrhythmia, unspecified; I48.91 Unspecified atrial fibrillation; E78.5 Hyperlipidemia, unspecified; I25.118 Atherosclerotic heart disease of native coronary artery with other forms of angina pectoris; G43.909 Migraine, unspecified, not intractable, without status migrainosus; F41.9 Anxiety disorder, unspecified; F32.9 Major depressive disorder, single episode, unspecified; W26.8XXA Contact with other sharp object(s), not elsewhere classified, initial encounter
CPT/HCPCS: 12001; J2001

== ENCOUNTER 2018-12-18 07:50 | Emergency (ER) | payer OTHER | END 2018-12-18 08:27 | disposition home or self-care (01) | LOC: NAV ERS 07:50 | DX: S61.210D Laceration without foreign body of right index finger without damage to nail, subsequent encounter (principal); I49.9 Cardiac arrhythmia, unspecified; I48.91 Unspecified atrial fibrillation; E11.9 Type 2 diabetes mellitus without complications; E78.5 Hyperlipidemia, unspecified; I25.118 Atherosclerotic heart disease of native coronary artery with other forms of angina pectoris; I11.0 Hypertensive heart disease with heart failure; I50.9 Heart failure, unspecified; G43.909 Migraine, unspecified, not intractable, without status migrainosus; F41.9 Anxiety disorder, unspecified; F32.9 Major depressive disorder, single episode, unspecified; W26.8XXD Contact with other sharp object(s), not elsewhere classified, subsequent encounter ==

== ENCOUNTER 2019-03-10 13:29 | Emergency (ER) | payer OTHER ==
[2019-03-10 13:55] LABS: #Basophils 0.1 thou/uL (0.0-0.2); #Eosinphils 0.1 thou/uL (0.0-0.7); #Lymphocytes 2.8 thou/uL (1.20-3.40); #Monocytes 0.6 thou/uL (0.11-0.59); #Neutrophils 4.5 thou/uL (1.40-6.50); %Basophils 0.6 % (0.0-1.0); %Eosinophils 1.2 % (0.0-10.0); %Lymphocytes 34.6 % (21.0-51.0); %Monocytes 7.8 % (0.0-10.0); %Neutrophils 55.8 % (42.0-75.0); Hemoglobin 14.4 g/dL (14.0-18.0); Mean Corpuscular HGB CONC 34.6 g/dL (32.0-36.0); Mean Corpuscular Hemoglobin 31.6 pg (27.0-31.0); Mean Corpuscular Volume 91.2 fL (78.0-98.0); Mean Platelet Volume 6.6 fL (7.4-10.4); Platelet Count 264 thou/uL (130-400); RBC Distribution Width 11.5 % (11.5-14.5); Red Blood Cell (RBC) Count 4.56 mill/uL (4.70-6.10); White Blood Cell (WBC) Count 8.1 thou/uL (4.8-10.8)
--- NOTE | 2019-03-10 13:56 | RAD ---
XR Chest 1 View Portable History: Chest pain Comparison: Radiograph February 27, 2019 Findings: Heart size disease be enlarged. No pneumothorax. No effusion. No confluent airspace consoli dation. Gastric air-fluid level. Impression: No acute intrathoracic abnormality.
[2019-03-10 14:09] LABS: ALT (SGPT) 29 U/L (8-55); AST (SGOT) 20 U/L (5-34); Albumin 4.8 g/dL (3.5-5.0); Alkaline Phosphatase 66 U/L (40-110); Anion Gap 18 mmol/L (10-20); BUN (Urea Nitrogen) 16 mg/dL (8.4-25.7); Bilirubin, Total 0.3 mg/dL (0.2-1.2); CK (CPK) 165 U/L (30-200); Calc. Creatinine Clearance 0 mL/min (70-130); Calcium 9.7 mg/dL (7.8-10.44); Carbon Dioxide 27 mmol/L (22-29); Chloride 101 mmol/L (98-107); Estimated GFR-MDRD 65; Globulin 2.8 g/dL (2.4-3.5); Glucose 101 mg/dL (70-105); Potassium 4.4 mmol/L (3.5-5.1); Protein, Total 7.6 g/dL (6.0-8.3); Sodium 142 mmol/L (136-145)
[2019-03-10] MEDS ORDERED: Morphine 4 MG/ML VIAL ONE (14:10)
[2019-03-10] MEDS ORDERED: Nitroglycerin 2% Ointment 1 INCH/1 GM Packet ONE ×2 (14:10→14:11)
[2019-03-10] MEDS ORDERED: Ondansetron PF 4 MG/2 ML Vial ONE (14:10)
== END 2019-03-10 14:48 | disposition short-term general hospital (02) ==
LOC: NAV ERS 13:29
DX: R07.9 Chest pain, unspecified (principal); I48.91 Unspecified atrial fibrillation; E11.9 Type 2 diabetes mellitus without complications; E78.5 Hyperlipidemia, unspecified; I10 Essential (primary) hypertension; G43.909 Migraine, unspecified, not intractable, without status migrainosus; F41.9 Anxiety disorder, unspecified; F32.9 Major depressive disorder, single episode, unspecified
CPT/HCPCS: 71045; 80053; 82550; 84484; 85025; 93005; 96374; 96375; J2270; J2405

== ENCOUNTER 2019-03-28 16:00 | Emergency (ER) | payer OTHER ==
[2019-03-28] MEDS ORDERED: Acetaminophen 500 MG TAB ONE (16:54)
[2019-03-28 16:57] LABS: #Basophils 0.1 thou/uL (0.0-0.2); #Eosinphils 0.1 thou/uL (0.0-0.7); #Lymphocytes 2.7 thou/uL (1.20-3.40); #Monocytes 0.8 thou/uL (0.11-0.59); #Neutrophils 4.7 thou/uL (1.40-6.50); %Basophils 0.9 % (0.0-1.0); %Eosinophils 1.3 % (0.0-10.0); %Lymphocytes 32.5 % (21.0-51.0); %Monocytes 9.2 % (0.0-10.0); %Neutrophils 56.1 % (42.0-75.0); Mean Corpuscular HGB CONC 32.8 g/dL (32.0-36.0); Mean Corpuscular Hemoglobin 30.6 pg (27.0-31.0); Mean Corpuscular Volume 93.2 fL (78.0-98.0); Mean Platelet Volume 7.2 fL (7.4-10.4); Platelet Count 289 thou/uL (130-400); RBC Distribution Width 11.7 % (11.5-14.5); Red Blood Cell (RBC) Count 4.57 mill/uL (4.70-6.10); White Blood Cell (WBC) Count 8.3 thou/uL (4.8-10.8)
[2019-03-28] MEDS ORDERED: Rivaroxaban 10 MG TAB PO SCH (17:00)
[2019-03-28 17:20] LABS: CKMB 1.7 ng/mL (0-6.6); Troponin I Less than 0.010 ng/mL (< 0.028)
[2019-03-28 17:24] LABS: ALT (SGPT) 32 U/L (8-55); AST (SGOT) 24 U/L (5-34); Albumin 4.7 g/dL (3.5-5.0); Alkaline Phosphatase 78 U/L (40-110); Anion Gap 20 mmol/L (10-20); BUN (Urea Nitrogen) 21 mg/dL (8.4-25.7); Bilirubin, Total 0.2 mg/dL (0.2-1.2); Calc. Creatinine Clearance 0 mL/min (70-130); Calcium 9.8 mg/dL (7.8-10.44); Carbon Dioxide 24 mmol/L (22-29); Chloride 100 mmol/L (98-107); Estimated GFR-MDRD 71; Globulin 2.9 g/dL (2.4-3.5); Glucose 110 mg/dL (70-105); Potassium 4.1 mmol/L (3.5-5.1); Protein, Total 7.6 g/dL (6.0-8.3); Sodium 140 mmol/L (136-145)
== END 2019-03-28 17:50 | disposition home or self-care (01) ==
LOC: NAV ERS 16:00
DX: I25.709 Atherosclerosis of coronary artery bypass graft(s), unspecified, with unspecified angina pectoris (principal); E11.9 Type 2 diabetes mellitus without complications; F41.9 Anxiety disorder, unspecified; F32.9 Major depressive disorder, single episode, unspecified; I10 Essential (primary) hypertension; K21.9 Gastro-esophageal reflux disease without esophagitis; G40.909 Epilepsy, unspecified, not intractable, without status epilepticus; Z79.01 Long term (current) use of anticoagulants; Z79.82 Long term (current) use of aspirin; Z79.51 Long term (current) use of inhaled steroids; Z79.84 Long term (current) use of oral hypoglycemic drugs; Z79.899 Other long term (current) drug therapy
CPT/HCPCS: 80053; 82553; 84484; 85025

== ENCOUNTER 2019-04-12 09:12 | Emergency (ER) | payer OTHER ==
[2019-04-12 10:11] LABS: #Basophils 0.1 thou/uL (0.0-0.2); #Eosinphils 0.1 thou/uL (0.0-0.7); #Monocytes 0.6 thou/uL (0.11-0.59); #Neutrophils 4.3 thou/uL (1.40-6.50); %Basophils 1.5 % (0.0-1.0); %Eosinophils 0.8 % (0.0-10.0); %Lymphocytes 28.1 % (21.0-51.0); %Neutrophils 60.7 % (42.0-75.0); Hemoglobin 13.5 g/dL (14.0-18.0); Mean Corpuscular HGB CONC 33.2 g/dL (32.0-36.0); Mean Corpuscular Hemoglobin 30.6 pg (27.0-31.0); Mean Corpuscular Volume 92.1 fL (78.0-98.0); Mean Platelet Volume 6.8 fL (7.4-10.4); Platelet Count 249 thou/uL (130-400); RBC Distribution Width 11.2 % (11.5-14.5); Red Blood Cell (RBC) Count 4.42 mill/uL (4.70-6.10); White Blood Cell (WBC) Count 7.1 thou/uL (4.8-10.8)
[2019-04-12] MEDS ORDERED: Nitroglycerin 0.4 MG TAB (25 Tab Bottle) ONE (10:17)
[2019-04-12] MEDS ORDERED: Acetaminophen 500 MG TAB ONE (10:26)
--- NOTE | 2019-04-12 10:26 | RAD ---
2 view chest: [04/12/2019] Comparison:03/10/2019 HISTORY: Left-sided chest pain FINDINGS: Heart and mediastinal contours are grossly unremarkable. No pneumothorax or pleural fluid. No focal consolidation or alveolar edema. Midline sternotomy wires and mediastinal clips are present. The lungs are hyperinflated suggesting air trapping and there is mild increased linear inter stitial density. These findings suggest COPD in the proper clinical setting. IMPRESSION: No acute findings.
[2019-04-12 10:28] LABS: ALT (SGPT) 28 U/L (8-55); AST (SGOT) 20 U/L (5-34); Albumin 4.4 g/dL (3.5-5.0); Alkaline Phosphatase 59 U/L (40-110); Anion Gap 18 mmol/L (10-20); BUN (Urea Nitrogen) 25 mg/dL (8.4-25.7); Bilirubin, Total 0.3 mg/dL (0.2-1.2); Calc. Creatinine Clearance 0 mL/min (70-130); Calcium 8.9 mg/dL (7.8-10.44); Carbon Dioxide 24 mmol/L (22-29); Chloride 101 mmol/L (98-107); Estimated GFR-MDRD Greater than 90; Globulin 2.6 g/dL (2.4-3.5); Glucose 127 mg/dL (70-105); Lipase 30 U/L (8-78); Potassium 3.3 mmol/L (3.5-5.1); Sodium 140 mmol/L (136-145)
[2019-04-12] MEDS ORDERED: Aspirin Chewable 81 MG TAB ONE (11:29)
[2019-04-12] MEDS ORDERED: Nitroglycerin 2% Ointment 1 INCH/1 GM Packet ONE (11:30)
== END 2019-04-12 12:00 | disposition short-term general hospital (02) ==
LOC: NAV ERS 09:12
DX: R07.9 Chest pain, unspecified (principal); I11.0 Hypertensive heart disease with heart failure; I50.9 Heart failure, unspecified; I25.10 Atherosclerotic heart disease of native coronary artery without angina pectoris; I49.9 Cardiac arrhythmia, unspecified; I48.91 Unspecified atrial fibrillation; E11.9 Type 2 diabetes mellitus without complications; E78.5 Hyperlipidemia, unspecified; G43.909 Migraine, unspecified, not intractable, without status migrainosus; F41.9 Anxiety disorder, unspecified; F31.9 Bipolar disorder, unspecified; Z79.899 Other long term (current) drug therapy; Z79.51 Long term (current) use of inhaled steroids; Z79.01 Long term (current) use of anticoagulants; Z79.4 Long term (current) use of insulin; Z79.52 Long term (current) use of systemic steroids
CPT/HCPCS: 71046; 80053; 83690; 83880; 84484; 85025; 93005

== ENCOUNTER 2020-12-30 09:35 | Outpatient (CLI) | payer BC | END 2020-12-30 09:36 | disposition home or self-care (01) | LOC: NAV RAD 09:35 | PROVIDERS: ATTEND Family Medicine | DX: G57.92 Unspecified mononeuropathy of left lower limb (principal); M43.17 Spondylolisthesis, lumbosacral region | CPT/HCPCS: 72020; 72120 ==

== ENCOUNTER 2021-05-06 08:10 | Outpatient (CLI) | payer BC | END 2021-05-06 08:11 | disposition home or self-care (01) | LOC: NAV RAD 08:10 | PROVIDERS: ATTEND Family Medicine | DX: J01.10 Acute frontal sinusitis, unspecified (principal); R05.9 Cough, unspecified | CPT/HCPCS: 71046; 74018 ==